=== PATIENT | male | born 1975 | race Caucasian/White ===

== ENCOUNTER → 2016-05-02 | Outpatient (CLI) | payer OTHER ==
[~2016-05-02] MED LIST: CLARITIN10 MG PO; FISH OIL1 GM PO; LEXAPRO5 MG PO; LIPITOR10 MG PO; THERA M PLUS T1 EACH PO
== END | disposition short-term general hospital (02) ==
LOC: CLPULM 07:54
DX: R91.8 Other nonspecific abnormal finding of lung field (principal); R79.9 Abnormal finding of blood chemistry, unspecified; R05 Cough; R63.4 Abnormal weight loss; E78.5 Hyperlipidemia, unspecified; F41.9 Anxiety disorder, unspecified